=== PATIENT | male | born 1945 | race Caucasian/White ===

== ENCOUNTER 2017-03-19 05:29 | Day surgery (SDC) | payer MEDICARE, OTHER ==
[2017-03-17 13:54] LABS: HEMOGLOBIN 14.8 g/dL (13.6-17.8)
--- NOTE | ~2017-03-19 | OP ---
Record Of Operation [facility] [address]. [address] NAME: KRISTEN PENNY : 45 STATUS : REG 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 PROCEDURES: Left L4-5 microdiskectomy, use of operative microscope, minimal access spine technology, and intraoperative O-arm CT scan with computer navigation. SURGEON: Bello Arambula DO. ANESTHESIA: General. ESTIMATED BLOOD LOSS: 5 mL. COMPLICATIONS: None. INDICATIONS: The patient is a pleasant 71-year-old with intractable left leg pain, failed conservative treatment. After discussion of the risks and benefits, elected to undergo surgical intervention. DESCRIPTION OF PROCEDURE: I identified the patient in the holding area. Consent was obtained. Went to the operating room. Underwent general anesthesia with endotracheal intubation. Prepped and draped in the usual sterile fashion. Operative safety pause was performed, then we proceeded with the surgery. The O-arm registration frame was placed in the iliac crest. O-arm was brought in for intraoperative CT scan. Computer registration materials were verified. Under computer guidance, a left longitudinal incision was made over the L4-5 level on the left side, it was taken down through the fascial layer. Tube dilators were used to minimally invasively dissect down to the left L4-5 interspace. Operative microscope was brought in. A estela was used to perform a laminotomy. Shanthi performed a foraminotomy. Disk was incised and multiple free disk fragments were removed that were causing compression of the L4 and L5 nerve roots. Irrigation was performed. Hemostasis was achieved. 40 mg Depo-Medrol was injected over the nerve roots. Layered closure was performed. Sterile dressings were applied. The patient was awoken and extubated, and taken to the recovery room in stable condition. OPERATIVE FINDINGS: Left L4-5 disk herniation and stenosis. TOMAS/RACHANA Bello Arambula DO Record Of Operation [place] [address] [address] NAME: KRISTEN PENNY : 45 STATUS : REG [facility] PAT#: [id number] AGE: 71 ADM/REG DATE : 03/19/17 MR#: [id number] REPORT SERV DATE: 03/19/17 DICTATED BY: BELLO ARAMBULA DATE: 03/19/17 REPORT STATUS : Draft TRANSCRIBED BY: RACHANA DATE: 03/19/17 / [id number] CC: Bello Arambula DO
[~2017-03-19 05:29] MED LIST: ALEVE220 MG PO; NEUR300 PO; NORCO1 TA1 PO
== END 2017-03-19 13:31 | disposition home or self-care (01) ==
LOC: SDC 05:29
PROVIDERS: Orthopaedic Surgery
PROC: 01NB0ZZ Release Lumbar Nerve, Open Approach (ICD-10-PCS; 2017-03-19)
PROC: 0SB20ZZ Excision of Lumbar Vertebral Disc, Open Approach (ICD-10-PCS; principal; 2017-03-19 06:45)
DX: M51.16 Intervertebral disc disorders with radiculopathy, lumbar region (principal); M48.06 Spinal stenosis, lumbar region; Z98.890 Other specified postprocedural states; Z79.891 Long term (current) use of opiate analgesic; Z79.899 Other long term (current) drug therapy
CPT/HCPCS: 85014; 85018; 88304; 88311; 93005; 94640; A9270-GY; J0690; J1030; J1170; J2250; J2405; J2710; J3010